=== PATIENT | female | born 1990 | race Caucasian/White ===

== ENCOUNTER 2021-06-21 09:50 | Emergency (ER) | payer BC ==
[~2021-06-21] VITALS: Ht 167.6 cm; Wt 60.0 kg
[2021-06-21] MEDS ORDERED: ONDANSETRON 4MG ODT PO ONE (10:15)
[2021-06-21] MEDS ORDERED: ONDA4TAB11 PO (10:24)
== END 2021-06-21 10:30 | disposition home or self-care (01) ==
LOC: ER 09:50
DX: R50.9 Fever, unspecified (principal); M79.18 Myalgia, other site; Z20.822 Contact with and (suspected) exposure to COVID-19
CPT/HCPCS: 99283; C9803; U0003; U0005